=== PATIENT | female | born 1980 | race Caucasian/White ===

== ENCOUNTER 2016-03-17 13:35 | Emergency (ER) | payer OTHER ==
[2016-03-17 15:12] VITALS: BP 130/84
[2016-03-17] MEDS ORDERED: Albuterol/Ipratropium NEB.SOL* Albuterol 2.5 MG/Ipratropium 0.5 MG 3 ML INH ONE (15:14)
[2016-03-17] MEDS ORDERED: predniSONE TAB* 20 MG PO ONE (15:14)
--- NOTE | 2016-03-23 14:52 | UC ---
Respiratory Complaint HPI - HPI Summary HPI Summary: Cough and wheeze for 2 days no fever - History of Current Complaint Chief Complaint: UCRespiratory Stated Complaint: RESP COMPLAINT Time Seen by Provider: 03/17/16 15:06 Hx Obtained From: Patient Hx Last Menstrual Period: iud ?: No Onset/Duration: Sudden Onset, Lasting Days - 2, Still Present Timing: Intermittent Episodes Severity Initially: Mild Severity Currently: None Pain Intensity: 0 Pain Scale Used: 0-10 Numeric Character: Cough: Nonproductive Aggravating Factors: Nothing Alleviating Factors: Nothing Associated Signs And Symptoms: Positive: Wheezing. Negative: Fever, Chills, Pleuritic Chest Pain - Allergies/Home Medications Allergies/Adverse Reactions: Allergies Allergy/AdvReac Type Severity Reaction Status Date / Time Diphenhydramine Allergy Severe rage Verified 02/19/16 01:30 Nitrofurantoin Allergy Severe swelling, Verified 02/19/16 01:30 [From Macrobid] hives PMH/Surg Hx/FS Hx/Imm Hx Previously Healthy: No Cardiovascular History Of: Denies: Pacemaker/ICD Respiratory History Of: Denies: Pneumonia GI/ History Of: Reports: Gastroesophageal Reflux Neurological History Of: Reports: Migraine Psychological History Of: Reports: Anxiety, Depression - Surgical History Surgical History: Yes Surgery Procedure, Year, and Place: LEFT ULNAR OSEOTOMY 2003,MALIGNANT MELANOMA EXCISION 2002 FROM RIGHT ARMPIT AREA ,DOG BITE REPAIR TO HAND 1996,BILATERAL INGUINAL HERNIA REPAIR 1982 - Family History Known Family History: Positive: Cardiac Disease, Hypertension, Diabetes, Other - Skin and breast cancer - Social History Occupation: Employed Full-time Lives: With Family Alcohol Use: Occasionally Substance Use Type: None Smoking Status (MU): Never Smoked Tobacco - Immunization History Most Recent Influenza Vaccination: january 2016 Review of Systems Constitutional: Negative Skin: Negative Eyes: Negative ENT: Negative Respiratory: Cough Cardiovascular: Negative Gastrointestinal: Negative Genitourinary: Negative Motor: Negative Neurovascular: Negative Musculoskeletal: Negative Neurological: Negative Psychological: Negative All Other Systems Reviewed And Are Negative: Yes Physical Exam Triage Information Reviewed: Yes Appearance: Well-Appearing, No Pain Distress, Well-Nourished Vital Signs: Initial Vital Signs Temp 97.7 F 03/17/16 15:09 Pulse 76 03/17/16 15:09 Resp 20 03/17/16 15:09 BP 130/84 03/17/16 15:09 Pulse Ox 98 03/17/16 15:09 Vital Signs Reviewed: Yes Eye Exam: Normal Eyes: Positive: Conjunctiva Clear ENT Exam: Normal ENT: Positive: Normal ENT inspection, Hearing grossly normal. Negative: Nasal congestion, Nasal drainage, Tonsillar swelling, Tonsillar exudate, Trismus, Muffled/hoarse voice Dental Exam: Normal Neck exam: Normal Neck: Positive: Supple, Nontender, No Lymphadenopathy Respiratory Exam: Normal Respiratory: Positive: Chest non-tender, No respiratory distress, No accessory muscle use, Wheezing Cardiovascular Exam: Normal Cardiovascular: Positive: RRR, No Murmur, Pulses Normal, Brisk Capillary Refill Musculoskeletal Exam: Normal Musculoskeletal: Positive: Strength Intact, ROM Intact, No Edema Neurological Exam: Normal Neurological: Positive: Alert, Muscle Tone Normal Psychological Exam: Normal Skin Exam: Normal UC Diagnostic Evaluation - Laboratory O2 Sat by Pulse Oximetry: 98 Respiratory Course/Dx - Course Course Of Treatment: albuterol mdi, prednisone, increase fluids follow with pcp - Differential Dx/Diagnosis Differential Diagnosis/HQI/PQRI: Bronchitis, Laryngitis, Lower Resp Infection, Sinusitis Provider Diagnoses: Acute exacerbation of bronchospasm Discharge - Discharge Plan Condition: Stable Disposition: HOME Prescriptions: Albuterol HFA INHALER* [Ventolin HFA Inhaler*] 2 puff INH Q6H PRN #1 mdi PRN Reason: cough, wheeze predniSONE TAB* [Deltasone TAB*] 10 mg PO DAILY #20 tab Patient Education Materials: How to Use a Metered-Dose Inhaler (ED), Bronchospasm (ED) Referrals: Kathi Benito MD [Primary Care Provider] - 5 Days
== END 2016-03-17 16:10 | disposition home or self-care (01) ==
LOC: UCEAST 13:35
DX: J98.01 Acute bronchospasm (principal); Z88.8 Allergy status to other drugs, medicaments and biological substances
CPT/HCPCS: 99212; A9270-GY; G0463; J7512

== ENCOUNTER 2018-12-31 15:50 | Emergency (ER) | payer OTHER ==
--- NOTE | 2018-12-31 16:09 | UC ---
Skin Complaint HPI - HPI Summary HPI Summary: 38 yo female presents with tick bite. She tells me that this morning she noticed a tick attached to her left mid back. Unsure how long it was attached. She had her mother remove it. No symptoms at this time. - History of Current Complaint Time Seen by Provider: 12/31/18 16:08 Stated Complaint: TICK Hx Obtained From: Patient Hx Last Menstrual Period: iud Onset/Duration: Sudden Onset Current Severity: None - Allergy/Home Medications Allergies/Adverse Reactions: Allergies Allergy/AdvReac Type Severity Reaction Status Date / Time diphenhydramine Allergy See Comment Verified 12/31/18 16:14 nitrofurantoin Allergy Swelling Verified 12/31/18 16:14 [From Macrobid] PMH/Surg Hx/FS Hx/Imm Hx Respiratory History: Asthma GI/ History: Gastroesophageal Reflux Psychological History: Anxiety, Depression Cancer History: Other - melanoma - Surgical History Surgical History: Yes Surgery Procedure, Year, and Place: LEFT ULNAR OSEOTOMY 2003,MALIGNANT MELANOMA EXCISION 2002 FROM RIGHT ARMPIT AREA ,DOG BITE REPAIR TO HAND 1996,BILATERAL INGUINAL HERNIA REPAIR 1982 - Family History Known Family History: Positive: Cardiac Disease, Hypertension, Diabetes, Other - Skin and breast cancer - Social History Occupation: Employed Full-time Lives: With Family Alcohol Use: Occasionally Substance Use Type: None Smoking Status (MU): Never Smoked Tobacco - Immunization History Most Recent Influenza Vaccination: january 2016 Review of Systems All Other Systems Reviewed And Are Negative: No Constitutional: Positive: Negative Skin: Positive: Other - Tick bite Respiratory: Positive: Negative Cardiovascular: Positive: Negative Neurovascular: Positive: Negative Neurological: Positive: Negative Psychological: Positive: Negative Physical Exam - Summary Physical Exam Summary: GENERAL: NAD. WDWN. No pain distress. SKIN: Left mid back there is a 7mm diameter of mild erythema and edema with central 1mm area of superficial skin loss. No streaking, bleeding, or drainage. NECK: Supple. Nontender. No lymphadenopathy. CHEST: No accessory muscle use. Breathing comfortably and in no distress. CV: Pulses intact. Cap refill <2seconds NEURO: Alert. PSYCH: Age appropriate behavior. Triage Information Reviewed: Yes Vital Signs: Vital Signs: Temp Pulse Resp BP Pulse Ox 97.4 F 82 16 137/89 96 12/31/18 16:05 12/31/18 16:05 12/31/18 16:05 12/31/18 16:05 12/31/18 16:05 Vital Signs Reviewed: Yes Course/Dx - Course Course Of Treatment: Educated on tick bites and lyme disease. Given that she is unsure how long the tick was attached, she was given 200mg doxycycline in the clinic today. Advised that if she develops signs/symptoms of lyme to be rechecked - Diagnoses Provider Diagnosis: Tick bite Discharge ED - Sign-Out/Discharge Documenting (check all that apply): Patient Departure All imaging exams completed and their final reports reviewed: No Studies - Discharge Plan Condition: Stable Disposition: HOME Patient Education Materials: Lyme Disease (ED), Tick Bite (ED) Referrals: Kathi Benito MD [Primary Care Provider] - Additional Instructions: TICK BITE: You have been bitten by a tick. Once the tick is removed, these "bites" usually cause no problems. Tick fever, tick paralysis, Pella Spotted fever, and Lyme disease are uncommon -- but you should mention this tick bite to your doctor if you develop unusual symptoms in the next several weeks. If you develop any of the following, please see your physician promptly: (1) Fever, chills, or generalized malaise associated with a headache. (2) A red round area at the site of the bite (or elsewhere) (3) Joint pain, joint swelling or generalized weakness. (4) Redness, swelling, or drainage at the site of the bite. Ticks do not have a typical "head" attached to their body. There are mouth parts sticking out which they use to feed. If there are mouth parts left behind in the wound there is NO increased risk of Lyme infection or disease transmission. If mouth parts remain after tick removal, the best thing to do is apply warm soaks to the area 3-4 times per day to encourage the skin to expel the foreign material. WHEN A TICK IS NOT ENGORGED AND HAS BEEN ON LESS THAN 24 HOURS - THE RISK FOR LYME IS NEGLIGIBLE. YOU CAN REMOVE THE TICK AND OBSERVE THE AREA ON YOUR OWN. - Billing Disposition and Condition Condition: STABLE Disposition: Home
[2018-12-31 16:11] VITALS: BP 137/89
[2018-12-31] MEDS ORDERED: DOXYcycline CAP(*) 100 MG PO ONE (16:24)
== END 2018-12-31 16:34 | disposition home or self-care (01) ==
LOC: UCEAST 15:50
DX: S30.860A Insect bite (nonvenomous) of lower back and pelvis, initial encounter (principal); J45.909 Unspecified asthma, uncomplicated; Z88.1 Allergy status to other antibiotic agents; Z88.8 Allergy status to other drugs, medicaments and biological substances; W57.XXXA Bitten or stung by nonvenomous insect and other nonvenomous arthropods, initial encounter; Y92.9 Unspecified place or not applicable
CPT/HCPCS: 99212; A9270-GY; G0463